=== PATIENT | female | born 1945 | race Caucasian/White ===

== ENCOUNTER 2018-11-07 14:55 | Emergency (ER) | payer MEDICARE, OTHER ==
[~2018-11-07] VITALS: Ht 152.4 cm; Wt 97.5 kg
[~2018-11-07 14:55] MED LIST: CITALOPRAM HBR20 MG PO; DIOVAN HCT 1601 EAC1 PO; FUROSEMIDE20 MG PO; METFORMIN HCL1000 MG PO; PANTOPRAZOLE SO40 MG PO; SENOKOT PO; VITAMIN E PO
--- NOTE | 2018-11-07 16:51 | Diagnostic Imaging Report ---
Exam: Right hand radiographs-3 views. History: Pain status post fall. Comparison: None. Findings: No evidence of acute fracture or malalignment. There is soft tissue edema in the proximal aspect of the ring finger. There are severe degenerative changes of the first carpometacarpal joint. Impression: Soft tissue edema in the proximal aspect of the ring finger. No evidence of fracture. Severe first carpometacarpal joint osteoarthritis. Signed by: Dr. Vicky Smith MD on 11/07/2018 4:48 PM
--- NOTE | 2018-11-07 17:30 | Diagnostic Imaging Report ---
ADDENDUM #1 I have reviewed the images and agree with findings in the preliminary report. Signed by: Dr. Rosa Munoz M.D. on 11/07/2018 9:17 PM ORIGINAL REPORT Exam: Noncontrast maxillofacial and head CTs History: 73-year-old female, fall Comparison studies:None Technique: Axial images were obtained to the vertex and maxillofacial region. Coronal and sagittal images reconstructed from the axial data. Dose modulation, iterative reconstruction, and/or weight based adjustment of the mA/kV was utilized to reduce the radiation dose to as low as reasonably achievable. Intravenous contrast: None Findings: Scalp/skull: Multiple nonspecific partially calcified skin nodules, most probably near the vertex measuring 14 mm. No fractures, blastic or lytic lesions. Extra-axial spaces: No masses. No fluid collections. Brain sulci: Mildly prominent. Ventricles: Normal in size and configuration. No hydrocephalus. Parenchyma: Mild scattered hypodensities in the supratentorial white matter are small vessel ischemic changes. No masses, hemorrhage, acute or chronic cortical vascular insults. Sellar/suprasellar region: No abnormalities Craniocervical junction: Patent foramen magnum. No Chiari one malformation. Maxillofacial CT: Soft tissues: Mild supraorbital and preseptal soft tissue swelling. No post septal or intraconal extension. The globe is normal. Bones: No acute fractures or bone abnormalities. Orbits: Globes: Intact. Right cataract surgery. Extra or intraconal abnormalities: None. Paranasal sinuses: Clear Incidental findings: Multilevel disc degenerative changes of the cervical spine with ankylosis at C5-6 and advanced disc height loss at C4-5. Probable right-sided foraminal stenosis at C5-6 and C6-7. IMPRESSION: Mild left periorbital soft tissue swelling without underlying fracture. The globe is intact. Chronic findings: Mild generalized volume loss. Degenerative changes of the cervical spine. Multiple partially calcified soft tissue nodules measuring up to 14 mm near the vertex scalp amenable to direct examination. Preliminary report was provided by the neuroradiology fellow. Final read to follow. Signed by: Vinayak Rivera MD on 11/07/2018 5:30 PM
--- NOTE | 2018-11-07 19:09 | Diagnostic Imaging Report ---
SHOULDER RIGHT COMPLETE - 3 views HISTORY: 73-year-old female, status post fall COMPARISON: None available. FINDINGS: Bones: No fracture. The alignment is normal. Joints: Mild loss of glenohumeral joint space. The subacromial space is maintained. Degenerative changes of the AC joint. Soft tissues: Normal. IMPRESSION: No acute radiographic abnormality. Signed by: Vinayak Rivera MD on 11/07/2018 7:06 PM
--- NOTE | 2018-11-07 19:10 | Diagnostic Imaging Report ---
KNEE LEFT THREE VIEWS - 3 views HISTORY: Pain COMPARISON: None available. FINDINGS: Bones: No fracture. The alignment is normal. Joints: Mild medial compartment joint space loss and osteophytosis. Soft tissues: Normal. No suprapatellar joint effusion. IMPRESSION: No acute radiographic abnormality. Signed by: Vinayak Rivera MD on 11/07/2018 7:07 PM
[2018-11-07 20:24] VITALS: BP 180/81
== END 2018-11-07 20:25 | disposition home or self-care (01) ==
LOC: ER 14:55
DX: S00.83XA Contusion of other part of head, initial encounter (principal); S00.81XA Abrasion of other part of head, initial encounter; M25.511 Pain in right shoulder; M79.641 Pain in right hand; M25.562 Pain in left knee; W01.0XXA Fall on same level from slipping, tripping and stumbling without subsequent striking against object, initial encounter; Y92.512 Supermarket, store or market as the place of occurrence of the external cause; I10 Essential (primary) hypertension; E11.9 Type 2 diabetes mellitus without complications
CPT/HCPCS: 70450; 70486; 99284

== ENCOUNTER → 2024-05-25 | Outpatient (REF) | payer MEDICARE | LOC: DX 10:45 | PROVIDERS: ATTEND Internal Medicine Gastroenterology | DX: K29.00 Acute gastritis without bleeding (principal) | CPT/HCPCS: 74230 ==